=== PATIENT | female | born 2000 | race Caucasian/White ===

== ENCOUNTER 2019-08-11 01:34 | Emergency (ER) | payer OTHER ==
[~2019-08-11] VITALS: Ht 170.2 cm; Wt 70.3 kg
== END 2019-08-11 02:11 | disposition home or self-care (01) ==
LOC: ER 01:34
DX: T74.21XA Adult sexual abuse, confirmed, initial encounter (principal); N93.9 Abnormal uterine and vaginal bleeding, unspecified; F31.9 Bipolar disorder, unspecified; F43.10 Post-traumatic stress disorder, unspecified; F17.210 Nicotine dependence, cigarettes, uncomplicated
CPT/HCPCS: 99283

== ENCOUNTER 2019-08-23 04:53 | Emergency (ER) | payer OTHER ==
[~2019-08-23] VITALS: Ht 170.2 cm; Wt 63.5 kg
[2019-08-23] MEDS ORDERED: Bactrim 400-801 EACH PO (06:09)
== END 2019-08-23 06:16 | disposition home or self-care (01) ==
LOC: ER 04:53
DX: L02.412 Cutaneous abscess of left axilla (principal); F17.210 Nicotine dependence, cigarettes, uncomplicated
CPT/HCPCS: 99283; A9270-GY